=== PATIENT | male | born 1980 | race Caucasian/White ===

== ENCOUNTER 2020-06-28 14:01 | Emergency (ER) | payer OTHER ==
[~2020-06-28] VITALS: Ht 154.9 cm; Wt 86.2 kg
[~2020-06-28 14:01] MED LIST: DICLOFENAC SODI50 MG PO
== END 2020-06-30 11:29 | disposition home or self-care (01) ==
LOC: ER 14:01
DX: D69.49 Other primary thrombocytopenia (principal); R50.9 Fever, unspecified

== ENCOUNTER 2021-09-08 14:49 | Outpatient (CLI) | payer OTHER | END 2021-09-08 14:56 | disposition home or self-care (01) | LOC: LAB 14:49 | PROVIDERS: ATTEND Obstetrics & Gynecology | DX: J06.9 Acute upper respiratory infection, unspecified (principal); Z03.818 Encounter for observation for suspected exposure to other biological agents ruled out ==